=== PATIENT | female | born 1995 | race Caucasian/White ===

== ENCOUNTER 2017-08-08 11:20 | Inpatient (IN) | payer BC ==
[~2017-08-08] VITALS: Ht 157.5 cm; Wt 52.2 kg
[2017-08-08 11:25] VITALS: BP 106/72
--- NOTE | 2017-08-08 11:40 | NUR ---
21 YO F BIB FRIEND W/ C//O N/V/D + ABD PAIN 8 THAT BEGAN AT 0200 THIS MORNING. PT A&O X4, BUT SEEMS VERY DROWSY. GCS 15. CMS INTACT. RESPIRATIONS EVEN AND UNLABORED AT THIS TIME. LUNG SOUNDS CLEAR BILATERALLY. ABD SOFT BUT VERY TENDER TO PALPATION. PT REPORTS SHE HAS THROWN UP 20X SINCE 0200 AND HAS HAD 3X DIARRHEA SINCE 0200. PT REPORTS N/V AT THIS TIME. SKIN TURGOR IS WNL. ER MD ARREGUIN NOTIFIED OF PT STATUS. PT NEEDS MET AT THIS TIME. SAFETY PRECAUTIONS IN PLACE. WILL CONTINUE TO MONITOR.
[2017-08-08] MEDS ORDERED: NACL 0.9% 1,000 ML IV SCH (11:46)
[2017-08-08] MEDS ORDERED: DIPHENOXYLATE /ATROPINE 2.5 MG TAB PO ONE (11:50)
[2017-08-08] MEDS ORDERED: ONDANSETRON 4 MG/2 ML VIAL IVP ONE ×2 (11:50→14:00)
[2017-08-08] MEDS ORDERED: FAMOTIDINE 20 MG/2 ML VIAL IVP ONE (11:50)
[2017-08-08 12:10] LABS: BASOPHILS % (AUTO) 0.3 % (0.0-2.0); HEMATOCRIT 41.1 % (36-48); HEMOGLOBIN 13.7 g/dL (12.0-16.0); LYMPHOCYTES # (AUTO) 0.2 K/uL (2.5-16.5); LYMPHOCYTES % (AUTO) 1.8 % (20.5-51.1); MEAN CORPUSCULAR HEMOGLOBIN 29 pg (27-31); MEAN CORPUSCULAR HGB CONC 33 g/dL (33-37); MEAN CORPUSCULAR VOLUME 86.5 fL (80-94); MONOCYTES # (AUTO) 0.3 K/uL (0.8-1.0); MONOCYTES % (AUTO) 3.9 % (1.7-9.3); NEUTROPHILS # (AUTO) 8.4 K/uL (1.8-7.7); PLATELET COUNT (AUTO) 195 K/uL (140-450); RED BLOOD CELL COUNT(AUTO) 4.75 MIL/uL (4.20-5.40); RED CELL DISTRIBUTION WIDTH 13.9 % (11.6-13.7); WHITE BLOOD COUNT (AUTO) 8.9 K/uL (4.5-11.0)
[2017-08-08 12:18] LABS: ANION GAP 18.9 (8-16); CARBON DIOXIDE 23.8 mmol/L (21-32); CREATININE 0.7 mg/dL (0.6-1.3); POTASSIUM 3.7 mmol/L (3.5-5.1)
--- NOTE | 2017-08-08 12:21 | NUR ---
PT DOES NOT WANT TO TAKE LOMOTIL AT THIS TIME.
[2017-08-08 12:24] LABS: TOTAL BILIRUBIN 1.2 mg/dL (0.0-1.0)
--- NOTE | 2017-08-08 12:25 | NUR ---
PT DOES NOT WANT THE LOMOTIL AT THIS TIME DUE TO NAUSEA. ZOFRAN ADMINISTERED IVP. WILL ATTEMPT AGAIN IN A FEW MINUTES.
[2017-08-08] MEDS ORDERED: KETOROLAC 30 MG/ML VIAL IVP ONE (12:35)
--- NOTE | 2017-08-08 13:09 | NUR ---
PT REFUSING LOTODIL AT THIS TIME. PT REQUESTING PAIN MED OR GI COCKTAIL AT THIS TIME. ER MD ENGLE NOTIFIED. PT NEEDS MET. WILL CONTINUE TO MONITOR.
--- NOTE | 2017-08-08 13:45 | NUR ---
Dr. Pereira re-evaluating patient at bedside.
[2017-08-08] MEDS ORDERED: LIDOCAINE VISCOUS 2% 20 ML UDC PO ONE ×2 (13:50→14:20)
[2017-08-08] MEDS ORDERED: ALUMINUM HYD/MAG/SIMETHICONE 30 ML UDC PO ONE ×2 (13:50→14:20)
--- NOTE | 2017-08-08 13:55 | NUR ---
PT VOMIIED AFTER TOOK MEDS ; XYLOCAIN VISCOUS 2% & MAALOX. NOTIFIED DR ARREGUIN.
--- NOTE | 2017-08-08 14:37 | NUR ---
PT VOMIIED AFTER TOOK MEDS ; XYLOCAIN VISCOUS 2% & MAALOX. NOTIFIED DR ARREGUIN.
[2017-08-08] MEDS ORDERED: ACETAMINOPHEN 325 MG TAB PO PRN (14:45)
[2017-08-08] MEDS ORDERED: DOCUSATE SODIUM 100 MG GELCAP PO PRN (14:45)
[2017-08-08 15:54] LABS: CHOL/HDL RATIO 2.2 (1-4.5); MAGNESIUM 1.6 mg/dL (1.8-2.4); PHOSPHORUS 4.5 mg/dL (2.5-4.9); PROTHROMBIN TIME 10.7 secs (10.8-13.4); THYROID STIMULATING HORMONE 0.3 uIU/mL (0.34-3.74)
--- NOTE | 2017-08-08 16:05 | NUR ---
ADMITT[place], ACCOMPANIED BY PT. BOYFRIEND -MUSHTAQ. AWAKE, ALERT, AND ORIENTED X4. SPEECH CLEAR. NO C/O PAIN. NO SOB, NOTED. NO C/O N/V. SKIN WARM, DRY, AND INTACT. KEEP COMFORTABLE ON BED. EXPLAINED DIAGNOSIS, PLAN OF CARE, PAIN MANAGEMENT TEACHING, DIET, USE OF CALL LIGHT/BED/TV/BATHROOM. VERBALIZED UNDERSTANDING. ADMISSION ASSESSMENT DONE. CALL LIGHT WITHIN REACH.
--- NOTE | 2017-08-08 16:08 | NUR ---
Patient will be admitted to care of DR KELLEY. Admited to MS. Will go to room 111B. Belongings list completed. Report to BEE OCONNELL.
--- NOTE | 2017-08-08 16:10 | NUR ---
Patient's Plan of Care was discussed and reviewed with ELECTRONIC WIRER: HARJEET.
[2017-08-08 16:15] VITALS: BP 124/84
[2017-08-08] MEDS: NACL 0.9% 1,000 ML IV SCH (16:41)
--- NOTE | 2017-08-08 17:25 | NUR ---
WENT TO BATHROOM WITHOUT ASSISTANCE. TOLERATED WELL. NO C/O PAIN. NO C/O N/V.
[2017-08-08] MEDS: LORazepam 0.5 MG TAB PO PRN (17:38)
--- NOTE | 2017-08-08 18:51 | NUR ---
RESTING ON BED COMFORTABLY. NO DISTRESS NOTED. PT. BOYFRIEND -MUSHTAQ ON BEDSIDE.
[2017-08-08 18:54] LABS: APPEARANCE,URINE CLEAR (CLEAR); BILIRUBIN,URINE NEGATIVE (NEGATIVE); BLOOD, URINE NEGATIVE (NEGATIVE); COLOR,URINE YELLOW (YELLOW); LEUKOCYTE ESTERASE ,URINE NEGATIVE (NEGATIVE); NITRITE, URINE NEGATIVE (NEGATIVE); UGLUCOSE NEGATIVE (NEGATIVE)
[2017-08-08 19:03] LABS: BARBITURATE, URINE NEG. ng/ml (NEG <=200); BENZODIAZEPINE, URINE NEG. ng/mL (NEG <=200); CANNABINOID, URINE POS. ng/mL (NEG <=50); COCAINE, URINE NEG. ng/mL (NEG <=300); OPIATE, URINE NEG. ng/mL (NEG <=2000); PHENCYCLIDINE SCREEN,URINE NEG. ng/mL (NEG <=25)
--- NOTE | 2017-08-08 19:05 | NUR ---
RECD RESTING IN BED, A/OX4. RESPIRATION EVEN AND UNLABORED. IV OF NS AT 90 ML/HR INFUSING, RIGHT FOREARM G22. NO N/V NOTED. PLAN OF CARE FOR THE SHIFT DISCUSSED. VERBALIZED UNDERSTANDING. DENIES PAIN 0/10. BOYFRIEND AT THE BEDSIDE.
[2017-08-08 19:13] LABS: RBC,URINE 0-5 (RARE) /HPF (0-5); WBC,URINE 0-5 (RARE) /HPF (0-5)
--- NOTE | 2017-08-08 20:00 | NUR ---
Patient's Plan of Care was discussed and reviewed with FIELD COORDINATOR: JOSE L ENGLISH
--- NOTE | 2017-08-08 22:00 | NUR ---
SLEEPING COMFORTABLY IN BED. REMINDED TO CALL NURSE BEFORE GETTING OUT OF BED FOR ASSISTANCE.
[2017-08-09] VITALS: BP 111/75
--- NOTE | 2017-08-09 | NUR ---
STILL SLEEPING COMFORTABLY IN BED. DENIES HAVING DIARRHEA AT THIS TIME.
[2017-08-09] MEDS: NACL 0.9% 1,000 ML IV SCH ×2 (01:51→12:58)
[2017-08-09] MEDS: ONDANSETRON 4 MG/2 ML VIAL IM/IVP PRN ×2 (02:32→08:29)
--- NOTE | 2017-08-09 02:32 | NUR ---
VOMITED SMALL AMOUNT OF FLUIDS, MEDICATED WITH ZOFRAN 4 MG. IVP BY BEE [place].
[2017-08-09] MEDS: MAGNESIUM OXIDE 400 MG TAB PO SCH (02:41)
--- NOTE | 2017-08-09 03:02 | NUR ---
NO NAUSEA/VOMITING NOTED. RESTING COMFORTABLY SLEEPING IN BED.
--- NOTE | 2017-08-09 06:30 | NUR ---
ASSISTED TO GO TO [facility]. STATED NO DIARRHEA SINCE LAST NIGHT.
--- NOTE | 2017-08-09 07:15 | NUR ---
RECEIVED REPORT FROM NIGHTSHIFT NURSE AT BEDSIDE. PATIENT IS AWAKE. PATIENT ALERT AND ORIENTED X4. PATIENT PRESENTS IN SEMI-FOWLERS POSITION. PATIENT DOES NOT COMPLAIN OF NAUSEA AT THIS TIME BUT A VOMITUS BAG IS PRESENT AT BEDSIDE. PATIENT'S BREATHING IS WITHIN NORMAL LIMITS. PATIENT DOES NOT COMPLAIN OF PAIN AT THIS TIME. LOWERED PATIENT'S BED TO LOWEST SETTING. ENCOURAGED PATIENT TO CALL IF SHE NEEDS HELP WITH AMBULATING. PUT CALL LIGHT WITHIN REACH OF PATIENT. UPDATED BOARD. WILL CONTINUE TO MONITOR PATIENT.
--- NOTE | 2017-08-09 07:15 | NUR ---
RESTING COMFORTABLY SLEEPING IN BED, ENDORSED TO AM NURSE FOR CONTINUITY OF CARE.
[2017-08-09 07:36] LABS: BASOPHILS % (AUTO) 0.1 % (0.0-2.0); HEMATOCRIT 37.1 % (36-48); HEMOGLOBIN 12.7 g/dL (12.0-16.0); LYMPHOCYTES # (AUTO) 0.7 K/uL (2.5-16.5); LYMPHOCYTES % (AUTO) 10.2 % (20.5-51.1); MEAN CORPUSCULAR HEMOGLOBIN 29 pg (27-31); MEAN CORPUSCULAR HGB CONC 34 g/dL (33-37); MEAN CORPUSCULAR VOLUME 85.9 fL (80-94); MONOCYTES # (AUTO) 0.6 K/uL (0.8-1.0); MONOCYTES % (AUTO) 8.1 % (1.7-9.3); NEUTROPHILS # (AUTO) 5.9 K/uL (1.8-7.7); NEUTROPHILS % (AUTO) 81.6 % (42.2-75.2); PLATELET COUNT (AUTO) 162 K/uL (140-450); RED BLOOD CELL COUNT(AUTO) 4.32 MIL/uL (4.20-5.40); RED CELL DISTRIBUTION WIDTH 13.5 % (11.6-13.7); WHITE BLOOD COUNT (AUTO) 7.2 K/uL (4.5-11.0)
[2017-08-09 07:48] LABS: ANION GAP 14.7 (8-16); CREATININE 0.6 mg/dL (0.6-1.3); POTASSIUM 3.7 mmol/L (3.5-5.1)
[2017-08-09 07:54] LABS: MAGNESIUM 1.9 mg/dL (1.8-2.4); PHOSPHORUS 3.3 mg/dL (2.5-4.9)
[2017-08-09 08:00] VITALS: BP 109/74
[2017-08-09] MEDS: FLUoxetine 10 MG CAP PO SCH (08:18)
--- NOTE | 2017-08-09 08:29 | NUR ---
PATIENT COMPLAINED OF NAUSEA. ADMINISTERED ZOFRAN MEDICATION TO HELP EASE PATIENT'S SYMPTOMS. WILL CONTINUE TO MONITOR PATIENT.
[2017-08-09] MEDS ORDERED: [UNRECOGNIZED DRUG - CODE] PO (08:55)
[2017-08-09] MEDS ORDERED: ONDA4ODT1 SL (08:55)
--- NOTE | 2017-08-09 10:40 | NUR ---
PATIENT HAS BEEN SCREENED AND CATEGORIZED MODERATE NUTRITION RISK. PATIENT WILL BE SEEN WITHIN 3-5 DAYS OF ADMISSION. 08/11/17 - 08/13/[address]
--- NOTE | 2017-08-09 11:06 | NUR ---
PATIENT SLEEPING AT THIS TIME. RESPIRATIONS WITHIN NORMAL LIMITS. WILL CONTINUE TO MONITOR.
[2017-08-09] MEDS ORDERED: FLUO10CA24 PO (11:13)
[2017-08-09] MEDS ORDERED: ATI.5 PO (11:13)
[2017-08-09] MEDS: LORazepam 0.5 MG TAB PO PRN (12:51)
[2017-08-09] MEDS ORDERED: SIMETHICONE 80 MG TAB.CHEW PO SCH (13:00)
[2017-08-09] MEDS ORDERED: CALCIUM CARBONATE 500 MG TAB.CHEW PO SCH (13:00)
--- NOTE | 2017-08-09 13:37 | NUR ---
CM NOTE PER EKG MONITOR SHAUNA, APPROVED FOR 2 DAYS AUTH# [id number] AND TO SEND ONLY REVIEWS TO [facility] IF PATIENT IS STILL IN THE HOSPITAL ON 08/11/17, FAX# [phone] PH# [phone] OPTION 6.
--- NOTE | 2017-08-09 15:37 | NUR ---
PATIENT COMPLAINS OF PAIN IN HER ABDOMEN. PATIENT ALSO FEELS NAUSEOUS. WANTS TO TRANSITION PATIENT TO PO MEDICATIONS FOR DISCHARGE PURPOSES. WILL CARRY OUT ORDERS.
[2017-08-09 16:00] VITALS: BP 123/73
[2017-08-09] MEDS ORDERED: ONDANSETRON 4 MG TAB PO SCH (16:00)
--- NOTE | 2017-08-09 16:01 | NUR ---
ADMINISTERED ZOFRAN PO FOR PATIENT'S NAUSEA. WILL MONITOR PATIENT.
--- NOTE | 2017-08-09 16:24 | NUR ---
PATIENT WAS NOT ABLE TO HOLD DOWN THE MEDICATION. PATIENT VOMITED CLEAR FLUID.
[2017-08-09] MEDS ORDERED: METOCLOPRAMIDE 10 MG TAB PO SCH (17:00)
--- NOTE | 2017-08-09 18:01 | NUR ---
PATIENT DOES NOT WANT TO TAKE PO MEDICATION REGLAN. PATIENT STATED, "I DO NOT FEEL COMFORTABLE GOING HOME SINCE I CANNOT HOLD ANYTHING DOWN". WILL DISCUSS WITH DOCTOR PATIENT'S CONCERNS.
[2017-08-09] MEDS ORDERED: diphenhydrAMINE 50 MG/ML VIAL IVP SCH (18:50)
[2017-08-09] MEDS ORDERED: PROMETHAZINE 25 MG/ML VIAL IM SCH (18:50)
--- NOTE | 2017-08-09 19:46 | NUR ---
GAVE REPORT TO NIGHTSHIFT NURSE AT BEDSIDE. PATIENT IN STABLE CONDITION.
--- NOTE | 2017-08-09 19:50 | NUR ---
RECEIVED REPORT FROM MANUFACTURING CHIEF ENGINEER NURSE DARLYN-BEE. PT RESTING IN ROOM WITH SIGNIFICANT OTHER AT BEDSIDE. AOX4, ON ROOM AIR, RIGHT FA #22G WITH NS RUNNING @ 90ML/HR. PT C/O NAUSEA AND VOMITING. WHITE BOARD UPDATED AND DISCUSSED PLAN OF CARE. PT VERBALIZED UNDERSTANDING. VITAL SIGNS STABLE. NO S/S OF RESPIRATORY DISTRESS OR PAIN. BED IN LOWEST POSITION. BED BREAKS ON. BED SIDE TABLE WITHIN REACH. CALL LIGHT WITHIN REACH. WILL CONTINUE TO MONITOR.
[2017-08-09 20:00] VITALS: BP 124/72
--- NOTE | 2017-08-09 21:00 | NUR ---
PT SLEEPING AT THIS TIME. WILL CONTINUE TO MONITOR.
--- NOTE | 2017-08-09 23:00 | NUR ---
PT CONTINUES TO SLEEP. WILL CONTINUE TO MONITOR.
[2017-08-10] VITALS: BP 107/74
[2017-08-10] MEDS: NACL 0.9% 1,000 ML IV SCH (00:39)
--- NOTE | 2017-08-10 01:00 | NUR ---
PT CONTINUES TO SLEEP. WILL CONTINUE TO MONITOR.
--- NOTE | 2017-08-10 03:30 | NUR ---
PT CONTINUES TO SLEEP. WILL CONTINUE TO MONITOR.
--- NOTE | 2017-08-10 06:00 | NUR ---
PT SLEEPING AT THIS TIME. WILL CONTINUE TO MONITOR.
[2017-08-10 06:22] LABS: T4 (THYROXINE) 7.7 ug/dL (4.5-12.0)
[2017-08-10 06:47] LABS: BASOPHILS % (AUTO) 0.2 % (0.0-2.0); HEMATOCRIT 35.2 % (36-48); LYMPHOCYTES # (AUTO) 1.4 K/uL (2.5-16.5); LYMPHOCYTES % (AUTO) 17.6 % (20.5-51.1); MEAN CORPUSCULAR HEMOGLOBIN 29 pg (27-31); MEAN CORPUSCULAR HGB CONC 34 g/dL (33-37); MEAN CORPUSCULAR VOLUME 86.2 fL (80-94); MONOCYTES # (AUTO) 0.9 K/uL (0.8-1.0); MONOCYTES % (AUTO) 11.2 % (1.7-9.3); NEUTROPHILS # (AUTO) 5.6 K/uL (1.8-7.7); PLATELET COUNT (AUTO) 157 K/uL (140-450); RED BLOOD CELL COUNT(AUTO) 4.08 MIL/uL (4.20-5.40); RED CELL DISTRIBUTION WIDTH 13.6 % (11.6-13.7); WHITE BLOOD COUNT (AUTO) 7.9 K/uL (4.5-11.0)
--- NOTE | 2017-08-10 07:10 | NUR ---
ENDORSED PT CARE TO DAY SHIFT NURSE TYLOR. PT IN STABLE CONDITION AT THIS TIME.
[2017-08-10 07:13] LABS: ANION GAP 17.3 (8-16); CARBON DIOXIDE 22.1 mmol/L (21-32); CREATININE 0.5 mg/dL (0.6-1.3); POTASSIUM 3.4 mmol/L (3.5-5.1)
[2017-08-10 07:26] LABS: MAGNESIUM 1.8 mg/dL (1.8-2.4); PHOSPHORUS 3.5 mg/dL (2.5-4.9)
--- NOTE | 2017-08-10 07:30 | NUR ---
RECEIVED PT REPORT FROM AIRCRAFT ORDNANCE TECHNICIAN NURSE RN. PT RESTING IN BED. PT IS AAOX4, ON ROOM AIR, IV NOTED TO THE RIGHT FA #22G WITH NS RUNNING AT 90ML/HR, ASYMPTOMATIC. DENIES PAIN. C/O NAUSEA. BOARD UPDATED AND DISCUSSED PLAN OF CARE. PT VERBALIZED UNDERSTANDING. VITAL SIGNS TAKEN. NO S/S OF RESPIRATORY DISTRESS. BED IN LOWEST POSITION. CALL LIGHT WITHIN REACH. WILL CONTINUE TO MONITOR.
[2017-08-10 08:00] VITALS: BP 138/75
[2017-08-10] MEDS: MAGNESIUM OXIDE 400 MG TAB PO SCH (08:36)
[2017-08-10] MEDS: FLUoxetine 10 MG CAP PO SCH (08:36)
[2017-08-10] MEDS: ONDANSETRON 4 MG/2 ML VIAL IM/IVP PRN (08:36)
--- NOTE | 2017-08-10 09:10 | NUR ---
REPORTED TO DR KLEIN THAT PT C/O OF GASTRIC ACID REFLUX. DR WILL PUT IN ORDERS.
[2017-08-10] MEDS ORDERED: FAMOTIDINE 20 MG TAB PO SCH (09:26)
--- NOTE | 2017-08-10 10:00 | NUR ---
PT AMB IN HALLWAYS WITH HER SIGNIFICANT OTHER. NO S/S OF RESPIRATORY DISTRESS.
--- NOTE | 2017-08-10 10:35 | NUR ---
PT STATED SHE IS ABLE TO KEEP MEDICATIONS DOWN. NO VOMITING NOTED SINCE START OF THE SHIFT.
[2017-08-10] MEDS ORDERED: FAMO-90 PO (11:33)
--- NOTE | 2017-08-10 12:55 | NUR ---
DISCHARGED PT PER MD ORDER. DISCHARGE INSTRUCTIONS GIVEN. MEDICATION TEACHING GIVEN. RX PROVIDED. MADE PT AWARE OF SCHEDULED MD APPOINTMENT. PT VERBALIZED UNDERSTANDING. IV DC'ED TIP INTACT, PRESSURE APPLIED. PT TOLERATED WELL. NO S/S OF ACUTE DISTRESS AT THIS TIME. PT LEFT IN STABLE CONDITION AND WITH ALL HER BELONGINGS. SIGNIFICANT OTHER IS WITH PT, WHEELED PT TO LOBBY.
[2017-08-11] MEDS ORDERED: FAMOTIDINE 20 MG TAB PO SCH (09:00)
--- NOTE | 2017-08-12 13:22 | NUR ---
CLARIFIED . WASTED MED DIPHENOXYLATE/ ATOPINE 2.5 MG AT 1209 , 08/08/17 D/T PT REFUSED
== END 2017-08-10 12:55 | disposition home or self-care (01) | DRG 392 ==
LOC: MED 11:20 → MTU 14:44
PROVIDERS: ADMIT Student in an Organized Health Care Education/Training Program; ATTEND Student in an Organized Health Care Education/Training Program
DX: K29.00 Acute gastritis without bleeding (principal); E83.42 Hypomagnesemia; K29.50 Unspecified chronic gastritis without bleeding; F43.0 Acute stress reaction; F41.1 Generalized anxiety disorder; F32.9 Major depressive disorder, single episode, unspecified; Z88.8 Allergy status to other drugs, medicaments and biological substances
CPT/HCPCS: 36415; 71045; 76700; 80048; 80053; 80305; 81001; 81025; 82150; 83036; 83690; 83735; 83880; 84100; 84436; 84443; 84479; 85025; 85610; 85730; 87081; 96361; 96374; 96375; 96376; 99285; J1200; J1885; J2405; J2550; J3490; J7030; J8597; Q0092; Q0162